=== PATIENT | female | born 1995 | race Caucasian/White ===

== ENCOUNTER 2017-05-31 04:38 | Emergency (ER) | payer SELFPAY ==
[~2017-05-31] VITALS: Ht 160 cm; Wt 63.5 kg
--- NOTE | 2017-05-31 05:05 | ED Psychosocial ---
General Chief Complaint: Substance Abuse Stated Complaint: OVERDOSE MED POSS SUICIDE ATTEMPT Source: patient Exam Limitations: no limitations History of Present Illness Date Seen by Provider: May 31, 2017 Time Seen by Provider: 04:53 Initial Comments Patient presents to ER by private conveyance with to her friends with a story that she was out drinking tonight and had probably about 6 or 7 beers with her friends and then they dropped her off at her apartment for about 20 minutes when she says she's not really sure what she was doing she was confused took 2 capsules of DayQuil and then called her friends. Her friends brought her here today thought she might have ingested the DayQuil and a suicide attempt. The patient states she was not suicidal is not depressed does not have a history of suicide attempts. She was not alone with anyone at anytime and denies any sexual assault or rape occurring. The patient states she feels fine is not having any pain nausea vomiting, chills, or rash, diarrhea, headache. Patient states she's not sure why she took the DayQuil as she's not having any cold symptoms right now and thinks she was just because she was goofy because she was drunk. Patient states she has had low mood in the past but not presently and has no desire to harm herself or kill herself. Patient is not sure when her last menstrual period was and is not on control. She does not smoke but does occasionally use marijuana. Her last use was about a week ago. She only occasionally drinks but when she does drink she has binged in the past as well as tonight. No one has expressed concern over drinking nor does she have any guilt nor has she needed any eye-instrumentation supervisor in the morning. Constitutional: No chills, No diaphoresis EENTM: No blurred vision, No double vision Respiratory: No cough, No dyspnea on exertion Cardiovascular: No chest pain, No palpitations, No syncope Gastrointestinal: No constipation, No diarrhea, No nausea Genitourinary: No discharge, No dysuria : No Control/STD Prophylaxis: None Musculoskeletal: No back pain, No joint pain Skin: No pruritus, No rash Psychiatric/Neurological: Denies Headache, Denies Numbness Past Vyksjby-Wswkvx-Qsjcrr Hx Patient Social History Alcohol Use: Occasionally Uses Number of Drinks Today: 6 Alcohol Beverage of Choice: Beer Recreational Drug Use: Yes Drug of Choice: marijuana Smoking Status: Never a Smoker Recent Foreign Travel: No Contact w/Someone Who Travel: No Physical Exam Vital Signs Capillary Refill : General Appearance: WD/WN, no apparent distress HEENT: PERRL/EOMI, pharynx normal Neck: full range of motion, normal inspection Respiratory: chest non-tender, lungs clear, normal breath sounds, no respiratory distress, no accessory muscle use Cardiovascular: normal peripheral pulses, regular rate, rhythm, no edema, no murmur Gastrointestinal: non tender, soft Extremities: non-tender, normal inspection, normal capillary refill Neurologic/Psychiatric: alert, normal mood/affect, oriented x 3 Appearance/Memory: appropriate appearance, appropriate insight, neat, no memory impairment Behavior/Eye Contact: cooperative, good eye contact, normal speech Thoughts/Hallucinations: normal thought pattern, no apparent hallucination Skin: normal color, warm/dry Progress/Results/Core Measures Progress Note : Time: 05:03 Progress Note Patient's pretty adamant that she took 2 capsules of DayQuil which would be atypical unit dose. She is also adamant that she is not suicidal nor she had any history of suicidal attempts. We discussed crisis intervention hotlines use of counselors, psychologist, Import/Export Clerk's, primary care physician, friends and family. She is agreed that if she does however feel like harming herself or killing herself that she will either return to the ER or call immediately a close friend or family member and give them an opportunity to intervene before she does something that she cannot undo. Patient does not have any scars on her arm indicating previous cutting her suicide attempts. We have discussed control and she thinks she would like to follow up with the health department or primary care physician and establish this. We have discussed her drinking habits and how they are inadvisable given her age as well as characteristic of binge drinking. We discussed being safe and avoiding assault. We have answered her questions and her physical examination as well as history did not reveal further need for workup to involve any invasive procedures. Just the same we have offered to do basic labs, urinalysis and an EKG and she has declined at this time. She is certainly decisional at this time so we will respect her wishes. Departure Impression Impression: Primary Impression: Alcohol abuse Disposition: 01 HOME, SELF-CARE Condition: Stable Departure-Patient Inst. Decision time for Depature: 05:06 Referrals: NO,LOCAL PHYSICIAN (PCP) Primary Care Physician Patient Instructions: ALCOHOL AND SUBSTANCE ABUSE Add. Discharge Instructions: Drink plenty of fluids and use 1000 mg of Tylenol and/or 800 mg of ibuprofen every 8 hours as needed for headache or misery. Please refrain from drinking more than 2-3 drinks at a time. Takes one hour for the healthy liver to process 1 ounce of alcohol. One 4 ounce glass of wine is equal to 112 ounce beer which is equal to 1 ounce of liquor typically. If you feel the desire to harm yourself , or that you need help then I would implore you to call a trusted friend or family member immediately and give them an opportunity to intervene before you do something your cannot undo. You may also return to the ER or you may call the crisis hotline at . [facility] has a Health Center staffed by provider's you can get you to appropriate resources. If you' re interested in -control [facility] or the [facility] or a primary care physician are all reasonable places to see about a prescription. All discharge instructions reviewed with patient and/or family. Voiced understanding. LAISHA WATTERS May 31, 2017 05:05
[2017-05-31 05:28] VITALS: BP 0/0
== END 2017-05-31 05:28 | disposition home or self-care (01) ==
LOC: EDUNIT# 04:38 → ER 04:43
DX: F10.10 Alcohol abuse, uncomplicated (principal); F12.90 Cannabis use, unspecified, uncomplicated
CPT/HCPCS: 99283

== ENCOUNTER 2018-03-26 02:59 | Emergency (ER) | payer BC, OTHER ==
[~2018-03-26] VITALS: Ht 157.5 cm; Wt 58.1 kg
[2018-03-26] MEDS ORDERED: LACTATED RINGERS 1,000 ML IV ONE ×2 (03:15→04:34)
[2018-03-26] MEDS ORDERED: SCOPOLAMINE 1.5 MG (TRANSDERM-SCOP) PATCH TD ONE (03:15)
[2018-03-26] MEDS ORDERED: ONDANSETRON 4 MG/2 ML (SDV) Z0FRAN IVP ONE (03:15)
--- NOTE | 2018-03-26 03:31 | ED General ---
General Chief Complaint: Substance Abuse Stated Complaint: ETOH Source of Information: Patient, EMS Exam Limitations: Intoxication History of Present Illness Date Seen by Provider: Mar 26, 2018 Time Seen by Provider: 03:00 Initial Comments PT ARRIVES VIA EMS PT'S BOYFRIEND CALLED EMS BECAUSE SHE IS INTOXICATED--IS UNKNOWN HOW MUCH OR WHAT SHE HAS BEEN DRINKING BOYFRIEND REPORTED THAT HE HAS TO GET UP AT 0500 TO GO TO WORK/ SCHOOL AND "COULDN'T TAKE CARE OF HER" SO CALLED EMS PT REPORTEDLY HAS BEEN DRINKING HEAVILY SINCE SHE TURNED 23 ON 03/20/18 PT HAS HISTORY OF ALCOHOL ABUSE WITH BINGE DRINKING--PT WAS HERE 05/31/17 FOR BINGE DRINKING PT HAS HAD VOMITING--SMALL AMOUNT, BUT MOSTLY DRY HEAVES NO OTHER COMPLAINTS PCP: [facility], PT IS ALSO A [employer] STUDENT FAMILY LIVES HERE IN [place] Allergies and Home Medications Allergies Coded Allergies: No Known Drug Allergies (Unverified , 05/31/17) Patient Home Medication List Home Medication List Reviewed: Yes Review of Systems Review of Systems Constitutional: no symptoms reported Respiratory: no symptoms reported Cardiovascular: no symptoms reported Gastrointestinal: see HPI, nausea, vomiting Genitourinary: no symptoms reported : No (NO CONTROL) LMP: Mar 11, 2018 Musculoskeletal: no symptoms reported Skin: no symptoms reported Psychiatric/Neurological: No Symptoms Reported Hematologic/Lymphatic: No Symptoms Reported Immunological/Allergic: no symptoms reported Past Zvehvhb-Uikdux-Tebtrx Hx Patient Social History Alcohol Use: Regular Use (VERY HEAVY SEVERAL DAYS/WEEK) Alcohol Beverage of Choice: Beer Recreational Drug Use: Yes (THC) Drug of Choice: marijuana Smoking Status: Current Someday Smoker Type Used: Cigarettes 2nd Hand Smoke Exposure: No Recent Foreign Travel: No Contact w/Someone Who Travel: No Recent Hopitalizations: No Past Medical History Surgeries: No Respiratory: No Cardiac: No Neurological: No : No Reproductive Disorders: No Genitourinary: No Gastrointestinal: No Musculoskeletal: No Endocrine: No HEENT: No Cancer: No Psychosocial: No Integumentary: No Blood Disorders: No Physical Exam Vital Signs Vital Signs - First Documented 03/26/18 03/26/18 03:00 05:51 Temp 97.8 Pulse 74 Resp 17 B/P (MAP) 122/86 (98) Pulse Ox 98 O2 Delivery Room Air Capillary Refill : Height, Weight, BMI Height: 5'3.00" Weight: 140lbs. oz. 63.338253cr; BMI Method:Stated General Appearance: No Apparent Distress, WD/WN, Other (REEKS OF ETOH. SPEECH CLEAR. PT ABLE TO STAND AND GET ON AND OFF BEDSIDE COMMODE ON HER OWN. ) HEENT: PERRL/EOMI Neck: Normal Inspection Respiratory: Normal Breath Sounds, No Accessory Muscle Use, No Respiratory Distress Cardiovascular: Regular Rate, Rhythm, No Edema, No JVD, No Murmur, Normal Peripheral Pulses Gastrointestinal: Non Tender, Soft Extremity: Normal Inspection, No Pedal Edema Neurologic/Psychiatric: Alert, Oriented x3, No Motor/Sensory Deficits, supervisor particleboard II- XII Norm as Tested, Other (BLUBBERING, "SOBBING" --NO TEARS. STATING "I WANT MY FRIENDS" "I WANT HERBIE" ) Skin: Normal Color, Warm/Dry; No Rash Progress/Results/Core Measures Suspected Sepsis SIRS Temperature: Pulse: Respiratory Rate: Laboratory Tests 03/26/18 03:52: White Blood Count 7.7 Blood Pressure / Mean: Laboratory Tests 03/26/18 03:52: Creatinine 0.91, Platelet Count 303, Total Bilirubin 0.5 Results/Orders Lab Results Laboratory Tests Test 03/26/18 03:20 03/26/18 03:52 Range/Units Urine Color YELLOW Urine Clarity CLEAR Urine pH 6.5 5-9 Urine Specific [place] 1.010 L 1.016-1.022 Urine Protein NEGATIVE NEGATIVE Urine Glucose (UA) NEGATIVE NEGATIVE Urine Ketones NEGATIVE NEGATIVE Urine Nitrite NEGATIVE NEGATIVE Urine Bilirubin NEGATIVE NEGATIVE Urine Urobilinogen NORMAL NORMAL MG/DL Urine Leukocyte Esterase NEGATIVE NEGATIVE Urine RBC (Auto) NEGATIVE NEGATIVE Urine RBC NONE /HPF Urine WBC NONE /HPF Urine Squamous Epithelial Cells 2-5 /HPF Urine Crystals NONE /LPF Urine Bacteria TRACE /HPF Urine Casts NONE /LPF Urine Mucus NEGATIVE /LPF Urine Culture Indicated NO Urine Opiates Screen NEGATIVE NEGATIVE Urine Oxycodone Screen NEGATIVE NEGATIVE Urine Methadone Screen NEGATIVE NEGATIVE Urine Propoxyphene Screen NEGATIVE NEGATIVE Urine Barbiturates Screen NEGATIVE NEGATIVE Ur Tricyclic Antidepressants Screen NEGATIVE NEGATIVE Urine Phencyclidine Screen NEGATIVE NEGATIVE Urine Amphetamines Screen NEGATIVE NEGATIVE Urine Methamphetamines Screen NEGATIVE NEGATIVE Urine Benzodiazepines Screen NEGATIVE NEGATIVE Urine Cocaine Screen NEGATIVE NEGATIVE Urine Cannabinoids Screen NEGATIVE NEGATIVE White Blood Count 7.7 4.3-11.0 10^3/uL Red Blood Count 4.92 4.35-5.85 10^6/uL Hemoglobin 13.8 11.5-16.0 G/DL Hematocrit 40 35-52 % Mean Corpuscular Volume 81 80-99 FL Mean Corpuscular Hemoglobin 28 25-34 PG Mean Corpuscular Hemoglobin Concent 35 32-36 G/DL Red Cell Distribution Width 13.6 10.0-14.5 % Platelet Count 303 130-400 10^3/uL Mean Platelet Volume 9.8 7.4-10.4 FL Neutrophils (%) (Auto) 54 42-75 % Lymphocytes (%) (Auto) 35 12-44 % Monocytes (%) (Auto) 9 0-12 % Eosinophils (%) (Auto) 2 0-10 % Basophils (%) (Auto) 1 0-10 % Neutrophils # (Auto) 4.1 1.8-7.8 X 10^3 Lymphocytes # (Auto) 2.7 1.0-4.0 X 10^3 Monocytes # (Auto) 0.7 0.0-1.0 X 10^3 Eosinophils # (Auto) 0.2 0.0-0.3 10^3/uL Basophils # (Auto) 0.0 0.0-0.1 10^3/uL Sodium Level 145 135-145 MMOL/L Potassium Level 3.8 3.6-5.0 MMOL/L Chloride Level 110 H 98-107 MMOL/L Carbon Dioxide Level 23 21-32 MMOL/L Anion Gap 12 5-14 MMOL/L Blood Urea Nitrogen 13 7-18 MG/DL Creatinine 0.91 0.60-1.30 MG/DL Estimat Glomerular Filtration Rate > 60 BUN/Creatinine Ratio 14 Glucose Level 102 70-105 MG/DL Calcium Level 9.2 8.5-10.1 MG/DL Corrected Calcium 8.9 8.5-10.1 MG/DL Magnesium Level 2.3 1.8-2.4 MG/DL Total Bilirubin 0.5 0.1-1.0 MG/DL Aspartate Amino Transf (AST/SGOT) 17 5-34 U/L Alanine Aminotransferase (ALT/SGPT) 15 0-55 U/L Alkaline Phosphatase 52 40-136 U/L Total Protein 7.6 6.4-8.2 GM/DL Albumin 4.4 3.2-4.5 GM/DL Amylase Level 45 25-125 U/L Lipase 33 8-78 U/L Serum Alcohol 274 H <10 MG/DL My Orders Orders - UMA MACIAS DO Saline Lock/Iv-Start (03/26/18 03:15) Urine Bedside (03/26/18 03:15) Monitor-Rhythm Ecg Trace Only (03/26/18 03:15) Alcohol (03/26/18 03:15) Amylase (03/26/18 03:15) Cbc With Automated Diff (03/26/18 03:15) Comprehensive Metabolic Panel (03/26/18 03:15) Drug Screen Stat (Urine) (03/26/18 03:15) Lipase (03/26/18 03:15) Magnesium (03/26/18 03:15) Ua Culture If Indicated (03/26/18 03:15) Ondansetron Injection (Zofran Injectio (03/26/18 03:15) Saline Lock/Iv-Start (03/26/18 03:15) Lactated Ringers (Lr 1000 Ml Iv Solution (03/26/18 03:15) Scopolamine Patch (Transderm-Scop Patch) (03/26/18 03:15) Saline Lock/Iv-Start (03/26/18 04:34) Lactated Ringers (Lr 1000 Ml Iv Solution (03/26/18 04:34) Ns Iv 1000 Ml (Sodium Chloride 0.9%) (03/26/18 04:34) Medications Given in ED Current Medications Medications Dose Ordered Sig/Ovidio Route Start Time Stop Time Status Last Admin Dose Admin Lactated Ringer's 1,000 ml @ 0 mls/hr Q0M ONCE IV 03/26/18 03:15 03/26/18 03:17 DC 03/26/18 03:28 999 MLS/HR Lactated Ringer's 1,000 ml @ 0 mls/hr Q0M ONCE IV 03/26/18 04:34 03/26/18 04:36 DC 03/26/18 04:46 999 MLS/HR Ondansetron HCl 4 mg ONCE ONCE IVP 03/26/18 03:15 03/26/18 03:17 DC 03/26/18 03:25 4 MG Scopolamine 1.5 mg ONCE ONCE TD 03/26/18 03:15 03/26/18 03:17 DC 03/26/18 03:25 1.5 MG Vital Signs/I&O 03/26/18 03/26/18 03:00 05:51 Temp 97.8 97.8 Pulse 74 82 Resp 17 17 B/P (MAP) 122/86 (98) 104/62 (76) Pulse Ox 98 O2 Delivery Room Air Capillary Refill : Progress Note : Progress Note 0335--PT IS SPITTING, AND HAS RIPPED OUT IV. IV RESTARTED. PT WAILING /CRYING LOUDLY. PT EVENTUALLY CALMED AND WAS COOPERATIVE FOR REMAINDER OF ER STAY NO DETERIORATION IN CONDITION DURING ER STAY NO VOMITING DURING ER STAY SPEECH CLEAR AND GAIT STEADY AT DISMISSAL AND DOES NOT APPEAR INTOXICATED ECG Initial ECG Impression Date: Mar 26, 2018 Initial ECG Impression Time: 03:25 Initial ECG Rate: 113 Initial ECG Rhythm: S.Tach Initial ECG Comparisson: No Previous ECG Available Departure Impression Primary Impression: Alcohol abuse with intoxication Disposition: 01 HOME, SELF-CARE Condition: Improved Departure-Patient Inst. Referrals: NO,LOCAL PHYSICIAN (PCP/Family) Primary Care Physician Patient Instructions: ALCOHOL AND SUBSTANCE ABUSE Add. Discharge Instructions: NO ALCOHOL!!!!! LOTS OF WATER AND GATORADE, EQUAL AMOUNTS--ENOUGH SO YOU ARE URINATING EVERY 2- 3 HOURS WHILE AWAKE TYLENOL 1 GRAM/ MOTRIN 800 MG 4 TIMES A DAY NEEDED FOR PAIN FOLLOW UP WITH [facility] OR [facility] NEEDED All discharge instructions reviewed with patient and/or family. Voiced understanding. UMA MACIAS DO Mar 26, 2018 03:31
[2018-03-26 03:45] LABS: BILIRUBIN,URINE NEGATIVE (NEGATIVE); CLARITY,URINE CLEAR; COLOR,URINE YELLOW; GLUCOSE, URINE (UA) NEGATIVE (NEGATIVE); KETONES,URINE NEGATIVE (NEGATIVE); LEUKOCYTE ESTERASE ,URINE NEGATIVE (NEGATIVE); NITRITE,URINE NEGATIVE (NEGATIVE); PH,URINE 6.5 (5-9); PROTEIN,URINE NEGATIVE (NEGATIVE); UROBILINOGEN,URINE NORMAL (NORMAL)
[2018-03-26 03:58] LABS: AMPHETAMINE SCREEN, URINE NEGATIVE (NEGATIVE); BACTERIA,URINE TRACE /HPF; BARBITURATE SCREEN URINE NEGATIVE (NEGATIVE); BENZODIAZEPINES SCREEN URINE NEGATIVE (NEGATIVE); CANNABINOID SCREEN, URINE NEGATIVE (NEGATIVE); COCAINE SCREEN URINE NEGATIVE (NEGATIVE); METHADONE STAT NEGATIVE (NEGATIVE); METHAMPHETAMINE SCREEN URINE S NEGATIVE (NEGATIVE); OPIATE SCREEN URINE NEGATIVE (NEGATIVE); OXYCODONE STAT NEGATIVE (NEGATIVE); PROPOXYPHENE STAT NEGATIVE (NEGATIVE); TRICYCLIC ANTIDEPRESSANTS SCRE NEGATIVE (NEGATIVE)
[2018-03-26 04:03] LABS: BASOPHILS % (AUTO) 1 % (0-10); EOSINOPHILS # (AUTO) 0.2 10^3/uL (0.0-0.3); EOSINOPHILS % (AUTO) 2 % (0-10); HEMATOCRIT 40 % (35-52); HEMOGLOBIN 13.8 G/DL (11.5-16.0); LYMPHOCYTES # (AUTO) 2.7 X 10^3 (1.0-4.0); LYMPHOCYTES % (AUTO) 35 % (12-44); MEAN CORPUSCULAR HEMOGLOBIN 28 PG (25-34); MEAN CORPUSCULAR HGB CONC 35 G/DL (32-36); MEAN CORPUSCULAR VOLUME 81 FL (80-99); MEAN PLATELET VOLUME 9.8 FL (7.4-10.4); MONOCYTES # (AUTO) 0.7 X 10^3 (0.0-1.0); MONOCYTES % (AUTO) 9 % (0-12); NEUTROPHILS # (AUTO) 4.1 X 10^3 (1.8-7.8); NEUTROPHILS % (AUTO) 54 % (42-75); PLATELET COUNT 303 10^3/uL (130-400); RED BLOOD COUNT 4.92 10^6/uL (4.35-5.85); RED CELL DISTRIBUTION WIDTH 13.6 % (10.0-14.5); WHITE BLOOD COUNT 7.7 10^3/uL (4.3-11.0)
[2018-03-26 04:22] LABS: ALANINE AMINOTRANSFERASE 15 U/L (0-55); ALBUMIN 4.4 GM/DL (3.2-4.5); ALKALINE PHOSPHATASE 52 U/L (40-136); AMYLASE 45 U/L (25-125); BILIRUBIN,TOTAL 0.5 MG/DL (0.1-1.0); BUN/CREATININE RATIO 14; CALCIUM 9.2 MG/DL (8.5-10.1); CARBON DIOXIDE 23 MMOL/L (21-32); CHLORIDE 110 MMOL/L (98-107); CREATININE SERUM 0.91 MG/DL (0.60-1.30); GFR ESTIMATED > 60; GLUCOSE 102 MG/DL (70-105); LIPASE 33 U/L (8-78); MAGNESIUM 2.3 MG/DL (1.8-2.4); POTASSIUM 3.8 MMOL/L (3.6-5.0); SODIUM 145 MMOL/L (135-145); TOTAL PROTEIN 7.6 GM/DL (6.4-8.2)
[2018-03-26] MEDS ORDERED: NS IV 1000 ML 1,000 ML IV SCH (04:34)
[2018-03-26 05:51] VITALS: BP 104/62
== END 2018-03-26 05:53 | disposition home or self-care (01) ==
LOC: EDUNIT# 02:59 → ER 03:00
DX: F10.129 Alcohol abuse with intoxication, unspecified (principal); F12.10 Cannabis abuse, uncomplicated; F17.210 Nicotine dependence, cigarettes, uncomplicated
CPT/HCPCS: 36415; 80053; 80306; 80320; 81000; 82150; 83690; 83735; 84703; 85025

== ENCOUNTER 2018-06-04 01:38 | Emergency (ER) | payer BC | END 2018-06-04 02:56 | disposition home or self-care (01) | LOC: ER 01:38 ==